=== PATIENT | female | born 1980 | race Caucasian/White ===

== ENCOUNTER 2017-04-01 12:23 | Emergency (ER) | payer OTHER ==
[2017-04-01 13:20] LABS: BILIRUBIN NEGATIVE (NEGATIVE); BLOOD NEGATIVE Ery/uL (NEGATIVE); CLARITY CLEAR (CLEAR); COLOR YELLOW (YELLOW); GLUCOSE (U) NORMAL (NORMAL); KETONE (U) NEGATIVE (NEGATIVE); LEUKOCYTES NEGATIVE Leu/uL (NEGATIVE); NITRITE NEGATIVE (NEGATIVE); PROTEIN NEGATIVE (NEGATIVE); SPECIFIC GRAVITY 1.015 (1.001-1.030); UROBILINOGEN 0.2 mg/dL (0.2-1.0)
[2017-04-01 13:21] LABS: BASOPHIL 0.5 % (0-2); EOSINOPHIL 1.3 % (0-5); HCT 38.9 % (37.0-47.0); LYMPHOCYTE 29.8 % (15-48); MCH 29.2 pg (25.0-31.0); MCHC 33.4 g/dL (32.0-36.0); MCV 87.4 fL (78.0-100.0); MONOCYTE 10.1 % (0-12); MPV 9.9 fL (6.0-9.5); NEUTROPHIL 58.3 % (41-80); PLT 357 K/uL (150-400); RBC 4.45 M/uL (4.20-5.40); RDW 14.9 % (11.5-14.0); WBC 8.6 K/uL (4.0-10.5)
[2017-04-01 13:44] LABS: ALBUMIN 4.5 g/dL (3.5-5.0); BILIRUBIN - TOTAL 0.3 mg/dL (0.1-1.0); CREATININE 0.7 mg/dL (0.5-1.0); GLOBULIN (CALCULATION) 2.6 g/dL (2.2-4.2); POTASSIUM 3.8 mmol/L (3.5-5.1); TOTAL PROTEIN 7.1 g/dL (6.4-8.3)
== END 2017-04-01 14:50 | disposition home or self-care (01) ==
LOC: FER 12:23
PROVIDERS: Nurse Practitioner
DX: M79.605 Pain in left leg (principal); M79.604 Pain in right leg; R22.43 Localized swelling, mass and lump, lower limb, bilateral; I10 Essential (primary) hypertension; Z88.1 Allergy status to other antibiotic agents; Z88.2 Allergy status to sulfonamides; Z88.8 Allergy status to other drugs, medicaments and biological substances
CPT/HCPCS: 36415; 80053; 81003; 85025; 85379; J1885